=== PATIENT | female | born 1950 ===

== ENCOUNTER 2019-05-16 11:57 | Emergency (ER) | payer SELFPAY ==
--- NOTE | 2019-05-16 14:04 | UC ---
Hand/Wrist HPI - HPI Summary HPI Summary: 68-year-old woman comes in with a chief complaint of right wrist pain. She tripped and fell on the ice 5 days ago falling on an outstretched right hand. She had pain right away. Pain overall has improved but she still has pain and she is concerned there might be a fracture. Not moving the wrist increases the pain moving it makes it worse. No complaint of any weakness or numbness. Patient reports the fall occurred as she was entering her workplace on May 11, 2019. - History Of Current Complaint Chief Complaint: UCUpperExtremity Stated Complaint: HAND INJURY Time Seen by Provider: 05/16/19 13:31 Pain Intensity: 2 - Allergies/Home Medications Allergies/Adverse Reactions: Allergies Allergy/AdvReac Type Severity Reaction Status Date / Time No Known Allergies Allergy Verified 05/16/19 13:21 Home Medications: Home Medications Aspirin 1 tab PO ONCE PRN 05/16/19 [History Confirmed 05/16/19] PMH/Surg Hx/FS Hx/Imm Hx Previously Healthy: Yes - Surgical History Surgical History: None Surgery Procedure, Year, and Place: tubal ligation - Family History Known Family History: Positive: Non-Contributory - Social History Alcohol Use: Rare Substance Use Type: None Smoking Status (MU): Never Smoked Tobacco Review of Systems All Other Systems Reviewed And Are Negative: Yes Constitutional: Positive: Negative Skin: Positive: Negative Eyes: Positive: Negative ENT: Positive: Negative Respiratory: Positive: Negative Cardiovascular: Positive: Negative Gastrointestinal: Positive: Negative Motor: Positive: Negative Neurovascular: Positive: Negative Musculoskeletal: Positive: Other: - SEE HPI Neurological/Mental Status: Positive: Negative Psychological: Positive: Negative Is Patient Immunocompromised?: No Physical Exam Triage Information Reviewed: Yes Appearance: Well-Appearing, No Pain Distress, Well-Nourished Vital Signs: Initial Vital Signs Temp 98.5 F 05/16/19 13:13 Pulse 67 05/16/19 13:13 Resp 18 05/16/19 13:13 BP 155/86 05/16/19 13:13 Pulse Ox 99 05/16/19 13:13 Vital Signs Reviewed: Yes Eye Exam: Normal Eyes: Positive: Conjunctiva Clear Neck: Positive: Supple Respiratory: Positive: No respiratory distress Musculoskeletal: Positive: Other: - Right wrist is tender to palpation on the dorsum. Patient denies any pain in the snuffbox. Fingers wrists have full range of motion full-strength. Normal capillary refill and sensation in the hand and wrist. Neurological: Positive: Alert Psychological: Positive: Age Appropriate Behavior Skin Exam: Normal Hand/Wrist Course/Dx - Course Course Of Treatment: Wired Sweatband Cutter: Jonathan Mayorga Daniel, ([id number]) Newspaper Or Periodical Editor: SAMUEL ( NUANCE) Report Date: 05/16/2019 13:58:00 Report Status: Final ====== Start of Report Content Patient Name: BRIDGETTE PRECIADO Medical Record#: [id number] Ordering Physician: Jose العلي MD Acct.#: [id number] : Age: 68 Sex: F Location: [facility] Exam Date: 05/16/19 1335 ADM Status: REG ER Order Information: WRIST RIGHT 3+ VWS Accession Number: [id number] CPT: 20650 HISTORY: PAIN S/P FOOSH 5D AGO . COMPARISONS: None relevant available at the time of dictation. VIEWS: 4, Frontal, lateral, oblique , and scaphoid deviation views of the right wrist FINDINGS: BONE DENSITY: There is diffuse osteopenia. BONES: There is no displaced fracture. JOINTS: There is mild osteoarthritis of the first CMC and STT joints. ALIGNMENT: There is no dislocation. SOFT TISSUES: Unremarkable. OTHER FINDINGS: None. IMPRESSION: 1. OSTEOPENIA. 2. OSTEOARTHRITIS. 3. NO ACUTE OSSEOUS INJURY. THE DEGREE OF OSTEOPENIA MAY MAKE A NONDISPLACED FRACTURE RADIOGRAPHICALLY OCCULT. IF SYMPTOMS PERSIST, RECOMMEND REPEAT IMAGING. <Electronically signed by Jonathan Mayorga MD in OV > 05/16/19 1354 Dictated By: Jonathan Mayorga MD Dictated Date/Time: 1354 Transcribed Date/Time: 05/16/19 1354 Copy to: CC:Moisés Puentes MD ; Jose العلي MD Imaging - [facility] Imaging - [facility] Imaging - [facility] [address] [address] ph [phone]) ph ([phone]) ph ([phone]) ==== End of Report Content I discussed the x-rays with the patient. Patient placed in a cock-up splint by nursing and clinic patient neurovascular intact after placement cock-up splint. Plan is to ice the area use ibuprofen and wear the splint as needed. Follow- up with occupational medicine or orthopedics if not completely improved. - Differential Dx/Diagnosis Provider Diagnosis: Right wrist pain Discharge ED - Sign-Out/Discharge Documenting (check all that apply): Patient Departure All imaging exams completed and their final reports reviewed: Yes - Discharge Plan Condition: Stable Disposition: HOME Patient Education Materials: Wrist Injury (ED) Referrals: Moisés Puentes MD [Primary Care Provider] - Noah Kruger MD [Medical Doctor] - Lenny Mora MD [Medical Doctor] - Additional Instructions: FOLLOW UP WITH OCCUPATIONAL MEDICINE, DR KRUGER, OR ORTHOPEDICS, DR MORA, IF NOT COMPLETELY IMPROVED. Take ibuprofen 400 mg every 6 hours as needed if helpful. GET REEVALUATED SOONER IF NOT IMPROVED OR WORSE OR ANY QUESTIONS OR CONCERNS. - Billing Disposition and Condition Condition: STABLE Disposition: Home
== END 2019-05-16 14:38 | disposition home or self-care (01) ==
LOC: UCEAST 11:57
DX: M25.531 Pain in right wrist (principal); M85.88 Other specified disorders of bone density and structure, other site; M19.031 Primary osteoarthritis, right wrist; Z79.82 Long term (current) use of aspirin
CPT/HCPCS: 99202; G0463